=== PATIENT | male | born 1940 | race Caucasian/White ===

== ENCOUNTER 2021-02-10 10:49 | Outpatient (CLI) | payer MEDICARE | END 2021-02-10 10:50 | disposition critical access hospital (66) | LOC: EMS 10:49 | DX: Z76.89 Persons encountering health services in other specified circumstances (principal) | CPT/HCPCS: A0425; A0429 ==

== ENCOUNTER 2021-02-10 11:10 | Emergency (ER) | payer MEDICARE ==
[2021-02-10 11:55] VITALS: BP 118/63
--- NOTE | 2021-02-10 12:06 | ED Physician Documentation ---
History of Present Illness - Stated complaint Stated Complaint: injestion - Chief complaint Chief Complaint: General - History obtained from History obtained from: EMS - Additonal information Additional information: This is a profoundly demented 80-year-old gentleman who [facility] after having eaten part of the mushroom he found. He has no complaints but is profoundly demented. Review of Systems Unable to obtain: Dementia PD PAST MEDICAL HISTORY - Present Medications Home Medications: Ambulatory Orders Medication Instructions Recorded Confirmed Acetaminophen 640 mg PO BID 02/10/21 02/10/21 Bisacodyl Supp [Dulcolax Supp] 10 mg [place] DAILY PRN 02/10/21 02/10/21 Loperamide [Imodium] 2 mg PO QID PRN 02/10/21 02/10/21 Mag Hydrox/Aluminum Hyd/Simeth 30 ml PO Q4HR PRN 02/10/21 02/10/21 [Antacid Plus Anti-Gas Liquid] Magnesium Hydroxide [Milk of 30 ml PO DAILY PRN 02/10/21 02/10/21 Magnesia] Melatonin 15 mg PO HS 02/10/21 02/10/21 QUEtiapine [SEROquel] 12.5 mg PO BID 02/10/21 02/10/21 - Allergies Allergies/Adverse Reactions: Allergies Allergy/AdvReac Type Severity Reaction Status Date / Time No Known Drug Allergies Allergy Verified 02/10/21 11:16 PD ED PE NORMAL - Vitals Vital signs reviewed: Yes - General General: Other (Quite demented, alert and oriented to person only) - Abdomen Abdomen: Soft, Non tender Results - Vitals Vitals: Vital Signs - 24 hr 02/10/21 02/10/21 11:12 11:41 Temperature 36.5 C 36 C L Heart Rate 45 L 46 L Respiratory 14 14 Rate Blood Pressure 123/58 L 118/63 O2 Saturation 100 100 Oxygen O2 Source Room air PD MEDICAL DECISION MAKING - ED course ED course: The mushroom accompanies him and is in agaricus, nonstaining, likely a campestrus. Departure - Departure Disposition: 01 Home, Self Care Clinical Impression: Ingestion of nontoxic substance Qualifiers: Encounter type: initial encounter Injury intent: undetermined intent Qualified Code(s): T65.94XA - Toxic effect of unspecified substance, undetermined, initial encounter Condition: Good Record reviewed to determine appropriate education?: Yes Comments: This mushroom is an agaricus species and they are not toxic.
== END 2021-02-10 12:56 | disposition home or self-care (01) ==
LOC: ED 11:10
DX: Z03.6 Encounter for observation for suspected toxic effect from ingested substance ruled out (principal)
CPT/HCPCS: 99282; 99283

== ENCOUNTER 2021-02-10 12:57 | Outpatient (CLI) | payer MEDICARE | END 2021-02-10 12:58 | disposition home or self-care (01) | LOC: EMS 12:57 | PROVIDERS: ATTEND Emergency Medicine | DX: F03.90 Unspecified dementia, unspecified severity, without behavioral disturbance, psychotic disturbance, mood disturbance, and anxiety (principal); R41.0 Disorientation, unspecified | CPT/HCPCS: A0425; A0428 ==

== ENCOUNTER 2022-04-10 06:25 | Outpatient (CLI) | payer MEDICARE, MEDICAID | END 2022-04-10 06:26 | disposition critical access hospital (66) | LOC: EMS 06:25 | DX: S01.81XA Laceration without foreign body of other part of head, initial encounter (principal); W06.XXXA Fall from bed, initial encounter; Y92.092 Bedroom in other non-institutional residence as the place of occurrence of the external cause; F03.90 Unspecified dementia, unspecified severity, without behavioral disturbance, psychotic disturbance, mood disturbance, and anxiety | CPT/HCPCS: A0425; A0429 ==

== ENCOUNTER 2022-04-10 06:43 | Emergency (ER) | payer MEDICARE, MEDICAID ==
--- NOTE | 2022-04-10 07:43 | ED Physician Documentation ---
PD HPI HEAD INJURY - Stated complaint Stated Complaint: GLF - Chief complaint Chief Complaint: Trauma Hd/Nk - History obtained from History obtained from: EMS - History of Present Illness Location of injury: Left Associated symptoms: No: LOC, AMS Contributing factors: No: Anticoagulated - Additional information Additional information: Patient is an 81-year-old male who presents to the emergency department after a ground-level fall this morning. He has severe dementia. Unable to give any history. [facility] at [facility]. There was no medication was sent with the patient by the mcc, the mcc told EMS that the patient does not take any blood thinners. In the mcc states that he struck his head on a dresser. No loss of consciousness. No vomiting. No seizure activity. Review of Systems Unable to obtain: Dementia PD PAST MEDICAL HISTORY - Past Medical History Past Medical History: Yes Neuro: Dementia - Present Medications Home Medications: Ambulatory Orders Medication Instructions Recorded Confirmed Loperamide [Imodium] 2 mg PO QID PRN 02/10/21 04/10/22 Melatonin 15 mg PO HS 02/10/21 04/10/22 QUEtiapine [SEROquel] 12.5 mg PO BID 02/10/21 04/10/22 - Allergies Allergies/Adverse Reactions: Allergies Allergy/AdvReac Type Severity Reaction Status Date / Time No Known Drug Allergies Allergy Verified 04/10/22 06:49 - Living Situation Living Arrangement: reports: care home - Social History Does the pt smoke?: No Does the pt have substance abuse?: No - Family History Family history: reports: Non contributory PD ED PE NORMAL - Vitals Vital signs reviewed: Yes - General General: No acute distress, Well developed/nourished, Other (Alert, nonverbal) - HEENT HEENT: PERRL, Moist mucous membranes, Other (Small stellate laceration to the left jainism. No scalp hematoma or palpable skull fracture) - Neck Neck: Supple, no meningeal sign - Cardiac Cardiac: RRR - Respiratory Respiratory: No respiratory distress, Clear bilaterally - Abdomen Abdomen: Soft, Non tender, Non distended - Derm Derm: Warm and dry - Extremities Extremities: No deformity, No tenderness to palpate, Normal ROM s pain - Neuro Neuro: Other (Alert) Results - Vitals Vitals: Vital Signs - 24 hr 04/10/22 06:47 Temperature 36.9 C Heart Rate 56 L Respiratory 18 Rate Blood Pressure 161/81 H O2 Saturation 100 Oxygen O2 Source Room air - Rads (name of study) Head CT Radiology: Final report received, EMP read contemporaneously, See rad report Cervical spine CT Radiology: Final report received, EMP read contemporaneously, See rad report Procedures - Laceration (location) Small stellate laceration to left jainism Length in cm: 0.5 Wound type: Stellate, Superficial Neurovascular status: Sensory intact, Motor intact, Vascular intact Wound preparation: Irrigated copiously NS Skin layer closure: Dermabond, Steri strips Other: Patient tolerated well, No complications, Neurovascular intact, Dressing applied, Tetanus UTD PD MEDICAL DECISION MAKING - ED course Complexity details: reviewed results, re-evaluated patient, considered differential ED course: Patient is an 81-year-old male with severe dementia sent in by his mcc after a ground-level fall. No acute findings on head CT or cervical spine CT. Laceration repaired with Steri-Strips and Dermabond. Tetanus up-to-date. We will have him follow-up with his doctor for further care. Patient is DNR, comfort care This document was made in part using voice recognition software. While efforts are made to proofread this document, sound alike and grammatical errors may occur. Departure - Departure Disposition: 01 Home, Self Care Clinical Impression: Facial laceration Qualifiers: Encounter type: initial encounter Qualified Code(s): S01.81XA - Laceration without foreign body of other part of head, initial encounter Closed head injury Qualifiers: Encounter type: initial encounter Qualified Code(s): S09.90XA - Unspecified injury of head, initial encounter Condition: Good Instructions: ED Head Injury Closed, ED Laceration Facial Skin Glue Follow-Up: Your,doctor in 1 week [Other] Comments: There are no acute findings on his head CT or cervical spine CT. The laceration was repaired with Steri-Strips and Dermabond. Please keep the wound clean. Do not apply ointment as this may dissolve the glue. You can cover the area with a bandage if he is picking at the wound site. Follow-up with his doctor if you notice redness, swelling or drainage from the wound.
--- NOTE | 2022-04-10 08:02 | CT Report ---
PROCEDURE: HEAD WO INDICATIONS: fall, head/neck injury, dementia TECHNIQUE: Noncontrast 4.5 mm thick angled axial sections acquired from the foramen magnum to the vertex. For r adiation dose reduction, the following was used: automated exposure control, adjustment of mA and/or kV according to patient size. COMPARISON: Correlation is made with the accompanying cervical spine CT, 04/10/2023. FINDINGS: Image quality: There is streak artifact seen through the skull base. CSF spaces: Basal cisterns a re patent. No extra-axial fluid collections. Ventricles are normal in size and shape. Brain: No midline shift. No intracranial masses or hemorrhage. Dela Cruz-white matter interface is norm al. Age-appropriate brain parenchymal volume loss and chronic small vessel ischemic change can be se en. 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 Skull and face: Calvarium and visualized facial bones are intact, without suspicious lesions. Sinuses: Visualized sinuses and mastoids are clear. IMPRESSION: No intracranial hemorrhage is seen. No significant intracranial abnormality is seen. 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 Reviewed by: Augusto Aden MD on 04/10/2022 7:01 AM [place] Approved by: Augusto Aden MD on 04/10/2022 7:01 AM [facility] Station ID: [id number]
--- NOTE | 2022-04-10 08:04 | CT Report ---
PROCEDURE: CERVICAL SPINE WO INDICATIONS: fall, head/neck injury, dementia TECHNIQUE: Noncontrast 3 mm thick sections acquired from the skull base to the T4 level. Sagittal and coronal r eformats were then constructed. For radiation dose reduction, the following was used: automated exp osure control, adjustment of mA and/or kV according to patient size. COMPARISON: Correlation is made with the accompanying head CT, 04/10/2022. FINDINGS: Image quality: Motion artifact is noted. Bones: No fractures or dislocations. Visualized superior ribs are intact. There is moderate disc space narrowing seen at C2-C3, with at least moderate disc space narrowing see n throughout the remainder of the cervical spine. Likely partially bridging of the vertebral bodies c an be seen involving the lower cervical spine. Focal degenerative change can also be seen involving t he C1-C2 interface anteriorly. Soft tissues: Prevertebral soft tissues are normal in thickness. No paravertebral hematomas. No ap ical pneumothoraces. Atherosclerotic calcification is seen. IMPRESSION: Negative for acute fracture. Advanced degenerative changes are seen, particularly inferiorly. Reviewed by: Augusto Aden MD on 04/10/2022 7:03 AM [facility] Approved by: Augusto Aden MD on 04/10/2022 7:03 AM [facility] Station ID: [id number]
[2022-04-10 09:06] VITALS: BP 179/73
== END 2022-04-10 10:04 | disposition home or self-care (01) ==
LOC: EDUNIT# → ED 06:43
DX: S01.81XA Laceration without foreign body of other part of head, initial encounter (principal); W18.30XA Fall on same level, unspecified, initial encounter; W22.03XA Walked into furniture, initial encounter; Y92.199 Unspecified place in other specified residential institution as the place of occurrence of the external cause; F03.90 Unspecified dementia, unspecified severity, without behavioral disturbance, psychotic disturbance, mood disturbance, and anxiety
CPT/HCPCS: 12011; 99283; 99284

== ENCOUNTER 2022-04-10 10:05 | Outpatient (CLI) | payer MEDICARE, MEDICAID | END 2022-04-10 10:06 | disposition home or self-care (01) | LOC: EMS 10:05 | PROVIDERS: ATTEND Emergency Medicine | DX: S01.81XA Laceration without foreign body of other part of head, initial encounter (principal); S09.90XA Unspecified injury of head, initial encounter; X58.XXXA Exposure to other specified factors, initial encounter; F03.90 Unspecified dementia, unspecified severity, without behavioral disturbance, psychotic disturbance, mood disturbance, and anxiety | CPT/HCPCS: A0425; A0428 ==

== ENCOUNTER 2022-05-30 15:42 | Outpatient (CLI) | payer MEDICARE, MEDICAID | END 2022-05-30 23:59 | disposition critical access hospital (66) | LOC: EMS 15:42 | DX: R19.7 Diarrhea, unspecified (principal); G30.9 Alzheimer's disease, unspecified; F02.80 Dementia in other diseases classified elsewhere, unspecified severity, without behavioral disturbance, psychotic disturbance, mood disturbance, and anxiety | CPT/HCPCS: A0425; A0429 ==

== ENCOUNTER 2022-05-30 16:06 | Emergency (ER) | payer MEDICARE, MEDICAID ==
[2022-05-30 16:17] VITALS: BP 121/72
[2022-05-30 17:33] LABS: BASOPHILS # (AUTO) 0.1 10^3/uL (0.0-0.1); BASOPHILS % (AUTO) 0.6 %; EOSINOPHILS # (AUTO) 0.1 10^3/uL (0.0-0.7); EOSINOPHILS % (AUTO) 0.9 %; HCT - HEMATOCRIT 41.1 % (42.0-52.0); HGB - HEMOGLOBIN 12.9 g/dL (14.0-18.0); LYMPHOCYTES # (AUTO) 2.8 10^3/uL (1.5-3.5); LYMPHOCYTES % (AUTO) 22.5 %; MEAN CORPUSCULAR HEMOGLOBIN 29.1 pg (27.0-31.0); MEAN CORPUSCULAR HGB CONC 31.4 g/dL (32.0-36.0); MEAN CORPUSCULAR VOLUME 92.8 fL (80.0-94.0); MEAN PLATELET VOLUME 9.6 fL (7.4-11.4); MONOCYTES # (AUTO) 0.9 10^3/uL (0.0-1.0); MONOCYTES % (AUTO) 7.7 %; NEUTROPHILS # (AUTO) 8.3 10^3/uL (1.5-6.6); NEUTROPHILS % (AUTO) 67.7 %; PLT - PLATELET COUNT 339 10^3/uL (130-450); RED BLOOD COUNT 4.43 10^6/uL (4.70-6.10); RED CELL DISTRIBUTION WIDTH 12.9 % (12.0-15.0); WHITE BLOOD COUNT 12.3 x10^3/uL (4.8-10.8)
[2022-05-30 17:44] LABS: ALBUMIN/GLOBULIN RATIO 0.8 (1.0-2.2); BILIRUBIN,TOTAL 0.4 mg/dL (0.2-1.0); CALCIUM 9.1 mg/dL (8.5-10.3); CREATININE 1.1 mg/dL (0.6-1.2); TOTAL PROTEIN 6.6 g/dL (6.7-8.2)
[2022-05-30] MEDS ORDERED: SODIUM CHLORIDE 0.9% 1,000 ML IV STA (17:54)
--- NOTE | 2022-05-30 17:54 | ED Physician Documentation ---
PD HPI NVD - Stated complaint Stated Complaint: AMS - Chief complaint Chief Complaint: Abd Pain - Additonal information Additional information: 82-year-old gentleman profound dementia comes from memory care unit with diarrhea x4 days. He is unable to give any history due to his severe dementia. Review of Systems Unable to obtain: Dementia PD PAST MEDICAL HISTORY - Past Medical History Neuro: Dementia - Present Medications Home Medications: Ambulatory Orders Medication Instructions Recorded Confirmed Loperamide [Imodium] 2 mg PO QID PRN 02/10/21 04/10/22 Melatonin 15 mg PO HS 02/10/21 04/10/22 QUEtiapine [SEROquel] 12.5 mg PO BID 02/10/21 04/10/22 AZITHROMYCIN (Oral Susp) 20 ml PO DAILY #40 ml 05/30/22 [Zithromax] - Allergies Allergies/Adverse Reactions: Allergies Allergy/AdvReac Type Severity Reaction Status Date / Time No Known Drug Allergies Allergy Verified 04/10/22 06:49 - Social History Does the pt smoke?: No Does the pt have substance abuse?: No PD ED PE NORMAL - Vitals Vital signs reviewed: Yes - General General: Other (Nonverbal with profound dementia) - Abdomen Abdomen: Normal bowel sounds, Soft, Non tender - Rectal Rectal: Other (Not incontinent of stool on my evaluation.) - Neuro Eye Opening: Spontaneous Motor: Localizes to Pain Verbal: None GCS Score: 10 Results - Vitals Vitals: Vital Signs - 24 hr 05/30/22 16:10 Temperature 36.5 C Heart Rate 70 Respiratory 18 Rate Blood Pressure 121/72 O2 Saturation 98 Oxygen O2 Source Room air - Labs Labs: Laboratory Tests 05/30/22 05/30/22 17:23 17:23 WBC 12.3 H RBC 4.43 L Hgb 12.9 L Hct 41.1 L MCV 92.8 MCH 29.1 MCHC 31.4 L RDW 12.9 Plt Count 339 MPV 9.6 Neut # (Auto) 8.3 H Lymph # (Auto) 2.8 [place] # (Auto) 0.9 Eos # (Auto) 0.1 Baso # (Auto) 0.1 Absolute Nucleated RBC 0.00 Nucleated RBC % 0.0 Sodium 146 H Potassium 4.0 Chloride 110 Carbon Dioxide 27 Anion Gap 9.0 BUN 29 H Creatinine 1.1 Estimated GFR (MDRD) 64 L Glucose 179 H Calcium 9.1 Total Bilirubin 0.4 AST 14 ALT 18 Alkaline Phosphatase 62 Total Protein 6.6 L Albumin 3.0 L Globulin 3.6 Albumin/Globulin Ratio 0.8 L Lipase 43 PD Medical Decision Making - ED course ED course: 82-year-old gentleman presents from assisted living with diarrhea. He has a benign exam. He does have some prerenal azotemia of unclear chronicity on evaluation of his comprehensive metabolic panel and also mild hypernatremia. CBC is notable for mild leukocytosis. Given his dementia he is not able to give a stool sample so we will treat him presumptively for potential bacterial causes. I spoke with his by phone and discussed lab results and plan for treatment and she was agreeable. She did note that he probably will do better with liquid medications than solid. Departure - Departure Disposition: 01 Home, Self Care Clinical Impression: Diarrhea Qualifiers: Diarrhea type: presumed infectious Qualified Code(s): R19.7 - Diarrhea, uns pecified Condition: Good Record reviewed to determine appropriate education?: Yes Instructions: ED Diarrhea Bacterial Prescriptions: AZITHROMYCIN (Oral Susp) [Zithromax] 20 ml PO DAILY #40 ml Comments: White count of 12, mild dehydration on labs. He received first dose of azithromycin here and he needs 2 more days. Return if worse.
[2022-05-30] MEDS ORDERED: AZITHROMYCIN 250 MG TABLET PO STA (17:55)
[2022-05-30] MEDS ORDERED: AZITHROMYCIN 100 MG/5 ML SYRINGE PO STA (18:05)
== END 2022-05-30 20:12 | disposition home or self-care (01) ==
LOC: EDUNIT# → ED 16:06
DX: R19.7 Diarrhea, unspecified (principal); F03.C0 Unspecified dementia, severe, without behavioral disturbance, psychotic disturbance, mood disturbance, and anxiety
CPT/HCPCS: 36415; 80053; 83690; 85025; 96360; 96361; 99284; A9270

== ENCOUNTER 2022-05-30 20:11 | Outpatient (CLI) | payer MEDICARE, MEDICAID | END 2022-05-30 20:12 | disposition home or self-care (01) | LOC: EMS 20:11 | PROVIDERS: ATTEND Emergency Medicine | DX: F03.90 Unspecified dementia, unspecified severity, without behavioral disturbance, psychotic disturbance, mood disturbance, and anxiety (principal); R41.0 Disorientation, unspecified | CPT/HCPCS: A0425; A0429 ==

== ENCOUNTER 2022-06-09 20:56 | Outpatient (CLI) | payer MEDICARE, MEDICAID | END 2022-06-09 20:57 | disposition critical access hospital (66) | LOC: EMS 20:56 | DX: S01.81XA Laceration without foreign body of other part of head, initial encounter (principal); W07.XXXA Fall from chair, initial encounter; Y92.098 Other place in other non-institutional residence as the place of occurrence of the external cause | CPT/HCPCS: A0425; A0429 ==

== ENCOUNTER 2022-06-09 21:12 | Emergency (ER) | payer MEDICARE, MEDICAID ==
--- NOTE | 2022-06-09 21:24 | ED Physician Documentation ---
PD HPI HEAD INJURY - Stated complaint Stated Complaint: GLF - History obtained from History obtained from: EMS - Additional information Additional information: Reportedly fell out of his chair at a dementia unit. Has a scrape on the right latter-day. He seems to be back at his baseline which is very demented and nonverbal. As such all of the history is independently from the paramedics. PD PAST MEDICAL HISTORY - Past Medical History Neuro: Dementia - Present Medications Home Medications: Ambulatory Orders Medication Instructions Recorded Confirmed Loperamide [Imodium] 2 mg PO QID PRN 02/10/21 04/10/22 Melatonin 15 mg PO HS 02/10/21 04/10/22 QUEtiapine [SEROquel] 12.5 mg PO BID 02/10/21 04/10/22 AZITHROMYCIN (Oral Susp) 20 ml PO DAILY #40 ml 05/30/22 [Zithromax] - Allergies Allergies/Adverse Reactions: Allergies Allergy/AdvReac Type Severity Reaction Status Date / Time No Known Drug Allergies Allergy Verified 04/10/22 06:49 - Social History Does the pt smoke?: No Does the pt have substance abuse?: No PD ED PE NORMAL - Vitals Vital signs reviewed: Yes - General General: Other (There is a quarter sized abrasion on the right latter-day. He is nonverbal but does not appear to be in any distress.) - HEENT HEENT: PERRL, EOMI - Neck Neck: No bony TTP - Neuro Eye Opening: Spontaneous Motor: Localizes to Pain Verbal: None GCS Score: 10 Results - Vitals Vitals: Oxygen O2 Source Room air Procedures - Laceration (location) Right latter-day Length in cm: 2 Wound type: Curved, Superficial Wound preparation: Irrigated copiously NS Skin layer closure: Dermabond PD Medical Decision Making - ED course ED course: 82-year-old gentleman with profound dementia presents after head injury. I cleansed his wound and closed it with Dermabond. I called his by phone who answered and we discussed goals of care. She declined advanced imaging as any positive results would not be acted upon. Departure - Departure Disposition: 01 Home, Self Care Clinical Impression: Closed head injury Qualifiers: Encounter type: initial encounter Qualified Code(s): S09.90XA - Unspecified injury of head, initial encounter Scalp abrasion Qualifiers: Encounter type: initial encounter Qualified Code(s): S00.01XA - Abrasion of scalp, initial encounter Condition: Good Record reviewed to determine appropriate education?: Yes Instructions: ED Head Injury Closed Comments: I spoke with the by phone who is his decision-maker. She would prefer no hospital transport as she is not interested in advanced imaging to rule out intracranial hemorrhage or other serious injuries.
[2022-06-09 21:29] VITALS: BP 157/73
== END 2022-06-09 21:43 | disposition home or self-care (01) ==
LOC: EDUNIT# → ED 21:12
DX: S01.81XA Laceration without foreign body of other part of head, initial encounter (principal); S09.90XA Unspecified injury of head, initial encounter; W07.XXXA Fall from chair, initial encounter; Y92.129 Unspecified place in nursing home as the place of occurrence of the external cause; F03.90 Unspecified dementia, unspecified severity, without behavioral disturbance, psychotic disturbance, mood disturbance, and anxiety; R41.0 Disorientation, unspecified
CPT/HCPCS: 12011; 99281

== ENCOUNTER 2022-06-09 21:32 | Outpatient (CLI) | payer MEDICARE, MEDICAID | END 2022-06-09 21:33 | disposition home or self-care (01) | LOC: EMS 21:32 | PROVIDERS: ATTEND Emergency Medicine | DX: R41.0 Disorientation, unspecified (principal); S01.81XA Laceration without foreign body of other part of head, initial encounter; W19.XXXA Unspecified fall, initial encounter | CPT/HCPCS: A0425; A0428 ==

== ENCOUNTER 2023-07-19 19:31 | Outpatient (CLI) | payer MEDICARE, MEDICAID | END 2023-07-19 19:32 | disposition critical access hospital (66) | LOC: EMS 19:31 | DX: R11.10 Vomiting, unspecified (principal); R19.7 Diarrhea, unspecified; R09.89 Other specified symptoms and signs involving the circulatory and respiratory systems; R14.0 Abdominal distension (gaseous); R10.817 Generalized abdominal tenderness | CPT/HCPCS: A0425; A0429 ==

== ENCOUNTER 2023-07-19 19:49 | Emergency (ER) | payer MEDICARE, MEDICAID ==
--- NOTE | 2023-07-19 20:18 | ED Physician Documentation ---
PD HPI NVD - Stated complaint Stated Complaint: VOMITING/DIARRHEA - Chief complaint Chief Complaint: Abd Pain - Additonal information Additional information: BIBA. Patient is unable to contribute to HPI/ROS due to non-verbal at baseline. Presents due to vomiting and diarrhea. POLST form (brought in with patient) indicates DNR, comfort measures only Review of Systems Unable to obtain: Dementia, Other (nonverbal, does not follow commands, does not make eye contact) PD PAST MEDICAL HISTORY - Past Medical History Neuro: Dementia - Present Medications Home Medications: Ambulatory Orders Medication Instructions Recorded Confirmed Acetaminophen [Tylenol] 160 mg 07/19/23 Ciprofloxacin HCl [Cipro] 500 mg PO BID #10 tablet 07/20/23 - Allergies Allergies/Adverse Reactions: Allergies Allergy/AdvReac Type Severity Reaction Status Date / Time No Known Drug Allergies Allergy Verified 07/19/23 19:53 - Social History Does the pt smoke?: No Smoking Status: Never smoker Does the pt have substance abuse?: No PD ED PE NORMAL - Vitals Vital signs reviewed: Yes - General General: No acute distress, Well developed/nourished, Other (lying on stretcher with eyes closed, NAD. nonverbal, does not follow commands) - HEENT HEENT: Other (tacky mucous membranes) - Cardiac Cardiac: No murmur - Respiratory Respiratory: No respiratory distress, Clear bilaterally - Abdomen Abdomen: Normal bowel sounds, Soft, Non tender (does not verbalize tender/nontender to palpation, but no wincing nor abdominal musculature tightening with light/deep palpation), Non distended - Extremities Extremities: Other (blue discoloration of bilateral feet/toes and right knee (c/w cyanosis although normal color of the lower leg b/w knee and foot on right)) - Neuro Eye Opening: To Pain Motor: Localizes to Pain Verbal: None GCS Score: 8 PD ED PE EXPANDED - Cardiac Cardiac: Tachy (mild tachycardia) Results - Vitals Vitals: Vital Signs - 24 hr 07/19/23 07/19/23 07/19/23 19:57 20:48 22:48 Temperature 36.1 C L 37.1 C Heart Rate 105 H 90 102 H Respiratory 13 13 14 Rate Blood Pressure 133/100 H 198/100 H 144/98 H O2 Saturation 99 100 98 07/20/23 00:00 Temperature Heart Rate 92 Respiratory 13 Rate Blood Pressure 142/90 H O2 Saturation 96 Oxygen O2 Source Room air - Labs Labs: Laboratory Tests 07/19/23 07/19/23 07/19/23 20:28 20:28 22:00 WBC 25.3 H RBC 5.39 Hgb 16.3 Hct 51.9 MCV 96.3 H MCH 30.2 MCHC 31.4 L RDW 13.2 Plt Count 305 MPV 10.5 Neut # (Auto) Not Reportable Lymph # (Auto) Not Reportable [place] # (Auto) Not Reportable Eos # (Auto) Not Reportable Baso # (Auto) Not Reportable Absolute Nucleated RBC Not Reportable Total Counted 100 Band Neuts % (Manual) 20 H Abnorm Lymph % (Manual) 0 Metamyelocytes % 2 H Nucleated RBC % Not Reportable Neutrophils # (Manual) 22.5 H Lymphocytes # (Manual) 0.3 L Monocytes # (Manual) 2.0 H Eosinophils # (Manual) 0.0 Basophils # (Manual) 0.0 Differential Comment MANUAL DIFFERENTIAL Platelet Estimate NORMAL (130-450,000) Platelet Morphology NORMAL APPEARANCE RBC Morph Micro Appear NORMAL APPEARANCE Sodium 140 Potassium 4.6 H Chloride 106 Carbon Dioxide 20 L Anion Gap 14.0 H BUN 36 H Creatinine 1.5 H Estimated GFR (MDRD) 44 L Glucose 214 H Calcium 10.3 Total Bilirubin 0.8 AST 24 ALT 17 Alkaline Phosphatase 78 Total Protein 7.1 Albumin 4.0 Globulin 3.1 Albumin/Globulin Ratio 1.3 Lipase 19 Stl C. diff Tox B Gene NEGATIVE - Rads (name of study) CT A/P with IV contrast Relevant Findings:: Prelim report reviewed, See rad report PD Medical Decision Making - ED course Complexity details: reviewed results, re-evaluated patient, considered differential ED course: Patient is in NAD during ED stay/observation. Afebrile, as well. Blood work is notable for significant leukocytosis, WBC 25.3. No particularly concerning findings on ER abdominal panel; elevated BUN (36) and creatinine (1.5) are consistent with dehydration. Over the course of his ED stay, he is given 2 L normal saline IV. Upon presentation to the ED, his adult diaper is noted to be very full of liquid stool. This is tested for C. difficile and is negative for C. difficile. PCR GI panel is also in progress. Although he is not in any apparent distress during ED stay and abdominal exam is benign on initial and repeat exams during ED stay, given the significant leukocytosis, a CT scan of the abdomen and pelvis is ordered.After this was ordered but before was undertaken, the patient's called to the ED and I discussed with her the test results thus far and the plan to undertake CT of the abdomen pelvis; she is in agreement with this. The patient's POLST form indicates DNR with comfort measures only. The reason for the CT scan is to assess whether there are any findings that would benefit from treatment in order to diminish or resolve signs (such as diarrhea) and symptoms (patient's says that staff indicated to her that the patient was seeming to be in a lot of painful discomfort earlier tonight). The CT scan is notable for a large amount of stool throughout the colon consistent with constipation possible fecal impaction. I attempted to perform a manual disimpaction, but I could only feel some firm stool at my fingertip. Patient is unable to follow commands (such as "bear down"), and thus I was unable to disimpact the stool. As soon as I withdrew my finger, there was once again a moderate amount of loose, liquid stool output. He is being discharged back to home place and a 1-time dose of milk of magnesia is being given 2-go, and I have included in the discharge instructions (and the ED nurse will also relay to staff at home [facility]) that the patient is to be given the dose of the milk of magnesia as soon as he arrives back at home [facility]. Also noted on the CT of the abdomen and pelvis, on the cuts into the thorax, are "multiple pulmonary nodulesconcerning for pulmonary metastatic disease." This is per the radiologist interpretation. No matter the patient's POLST wishes, any further workup in regard to this finding can be undertaken in the outpatient setting; of course, if the patient's wishes are truly to be comfort measures only, it would be of questionable utility to pursue a workup in regards to looking into whether or not this finding represents pulmonary metastases. The radiologist's interpretation also mentions "questionable sigmoid colon and distal descending colon wall thickening which may represent colitis, neoplastic process cannot be excluded." Given the significant leukocytosis in combination with possible colitis, I am providing prescription for BID Cipro x 5 days. Departure - Departure Disposition: 01 Home, Self Care Clinical Impression: Colitis Condition: Good Instructions: ED Constipation Prescriptions: Ciprofloxacin HCl [Cipro] 500 mg PO BID #10 tablet Comments: The CT scan of the abdomen pelvis are suggestive of constipation. There was a significant amount of very loose stool output during the ER stay; this is likely due to a large clot of hard, dry stool which is only allowing liquid stool to get around it and out. The CT scan also had findings suggestive of possible colitis (inflammation of the colon). There are a few different causes of colitis; a specific cause is rarely found during an emergency department workup. Because a bacterial infection is 1 possible cause, and considering that the white blood cell count was very elevated on karthik's blood tests, I am providing a prescription for an antibiotic that would cover many of the bacterial causes of colitis. I would recommend a one-time dose of milk of magnesia that can be given once he arrives back at [facility]. If he does not have a significant amount of firm/solid stool output, the primary care provider can be contacted for consideration of further orders for symptoms. The CT scan also included some imaging of the lower chest; the radiologist notes multiple nodules in both lungs on these images. Is unclear what is causing this appearance, but metastatic cancer would be one possibility. Further testing, such as a CT scan, would provide further information and might further suggest one diagnosis over another, but whether to pursue further study needs to be considered in the context of the patient's wishes for treatment should metastatic cancer be revealed to be the cause of this finding.
[2023-07-19] MEDS: ONDANSETRON 4 MG/2 ML VIAL IVP STA (20:24)
[2023-07-19 20:33] LABS: BASOPHILS % (AUTO) 0.6 %; HCT - HEMATOCRIT 51.9 % (42.0-52.0); HGB - HEMOGLOBIN 16.3 g/dL (14.0-18.0); MEAN CORPUSCULAR HEMOGLOBIN 30.2 pg (27.0-31.0); MEAN CORPUSCULAR HGB CONC 31.4 g/dL (32.0-36.0); MEAN CORPUSCULAR VOLUME 96.3 fL (80.0-94.0); MEAN PLATELET VOLUME 10.5 fL (7.4-11.4); MONOCYTES % (AUTO) 7.9 %; NEUTROPHILS % (AUTO) 87.6 %; PLT - PLATELET COUNT 305 10^3/uL (130-450); RED BLOOD COUNT 5.39 10^6/uL (4.70-6.10); RED CELL DISTRIBUTION WIDTH 13.2 % (12.0-15.0); WHITE BLOOD COUNT 25.3 x10^3/uL (4.8-10.8)
[2023-07-19 20:46] LABS: ABNORMAL LYMPHS % (MANUAL) 0 %
[2023-07-19 20:50] LABS: ALBUMIN/GLOBULIN RATIO 1.3 (1.0-2.2); BILIRUBIN,TOTAL 0.8 mg/dL (0.2-1.0); CALCIUM 10.3 mg/dL (8.5-10.3); CREATININE 1.5 mg/dL (0.6-1.3); POTASSIUM 4.6 mmol/L (3.5-4.5); TOTAL PROTEIN 7.1 g/dL (6.4-8.9)
[2023-07-19 21:08] LABS: BAND NEUTROPHILS % (MANUAL) 20 %; LYMPHOCYTES # (MANUAL) 0.3 10^3/uL (1.5-3.5); LYMPHOCYTES % (MANUAL) 1 %; METAMYELOCYTES % (MANUAL) 2 %; NEUTROPHILS # (MANUAL) 22.5 10^3/uL (1.5-6.6)
[2023-07-19 21:12] LABS: DIFFERENTIAL COMMENT MANUAL DIFFERENTIAL; PLATELET ESTIMATE, MANUAL NORMAL (130-450,000) (NORMAL); PLATELET MORPHOLOGY NORMAL APPEARANCE (NORMAL); RBC MORPHOLOGY (MULTIPLE) NORMAL APPEARANCE (NORMAL)
[2023-07-19] MEDS ORDERED: IOVERSOL 320 100 ML VIAL IVP ONE (21:27)
[2023-07-19] MEDS: IOVERSOL 320 100 ML VIAL IVP ONE (22:15)
[2023-07-19] MEDS: SODIUM CHLORIDE 0.9% 1,000 ML IV STA (22:26)
--- NOTE | 2023-07-19 22:36 | CT Report ---
PROCEDURE: Abdomen/Pelvis W INDICATIONS: leukocytosis, vomiting/diarrhea CONTRAST: 70 OPTI 320 TECHNIQUE: After the administration of intravenous contrast, a CT scan of the abdomen and pelvis was performed. Images were recorded and evaluated at appropriate window settings. Reformats: coronal and sagittal. F or radiation dose reduction, the following was used: automated exposure control, adjustment of mA and /or kV according to patient size. COMPARISON: None. FINDINGS: Image quality: Diagnostic. Lower chest: 1.2 cm lobulated solid nodule is seen in posterior lateral aspect of right middle lobe s eries 9 image 4. 1.2 x 1 cm solid nodule with central radiolucent area is seen in posterior medial as pect of right lower lobe. Series 9 image 5. 3 mm solid nodule is seen in right middle lobe series 9 i mage 5. 4 mm right middle lobe nodule and 5 mm right lower lobe nodule are also seen series 9 image 1 . 5 mm solid nodule is seen in anterior right lower lobe series 9 image 12. Bibasilar atelectasis is seen. Possible left upper lobe nodule is seen series 9 image 1 and is incompletely evaluated measures approximately 3 mm in size. Heart size is enlarged, no pericardial effusion. Coronary artery calcifi cations are seen. Liver: No solid mass. Gallbladder and biliary tree: Gallbladder is distended. No calcified gallstones. No gallbladder wall thickening. Spleen: No splenomegaly. Pancreas: No pancreatic ductal dilation. Adrenals: No adrenal nodule. Kidneys and ureters: No hydronephrosis. No renal cystic lesion which requires follow up. No solid mas s. Stomach, bowel and peritoneum: There is a small hiatal hernia. No evidence of small bowel obstruction or abnormal small bowel wall thickening. Large amount of fecal matter is noted throughout the colon extending to sigmoid colon and rectum with redundant sigmoid colon and suggestion of descending colon and sigmoid colon wall thickening and edema. No abscess collection. No peritoneal free air. Trace am ount of ascites fluid adjacent to the liver is seen. Lymph nodes: No central or retroperitoneal adenopathy. Vessels: No infrarenal aortic aneurysm. Moderate atherosclerotic calcifications in abdominal aorta is seen. PELVIS Reproductive organs: Unremarkable. Bladder: No abnormal wall thickening, accounting for underdistention. Pelvic lymph nodes: No pelvic adenopathy by size criteria. Bones: No aggressive osseous abnormality. Other: No significant ventral or inguinal hernia. IMPRESSION: 1. Large amount of fecal matter scattered throughout the colon particularly distending redundant sigm oid colon and rectum. Finding is concerning for constipation and severe fecal impaction. Questionable sigmoid colon and distal descending colon wall thickening which may represent colitis, neoplastic pr ocess cannot be excluded. Suggests GI correlation. No abscess collection. No free air. Trace amount o f free fluid adjacent to the liver. 2. 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 CT jeb st follow-up is recommended. 3. Distended gallbladder. No calcified gallstone or gallbladder wall thickening to suggest acute dise ase. Reviewed by: Long Box MD on 07/19/2023 10:35 PM PST Approved by: Long Box MD on 07/19/2023 10:35 PM PST Station ID: [id number]
[2023-07-19] MEDS: GLYCERIN ADULT SUPP PR STA (23:51)
[2023-07-20] MEDS: MAGNESIUM HYDROXIDE 2,400 MG/30 ML UDC PO STA (01:04)
[2023-07-20 01:17] VITALS: BP 142/90; O2SAT 96
== END 2023-07-20 01:44 | disposition home or self-care (01) ==
LOC: EDUNIT# → ED 19:49
DX: K52.9 Noninfective gastroenteritis and colitis, unspecified (principal); F03.90 Unspecified dementia, unspecified severity, without behavioral disturbance, psychotic disturbance, mood disturbance, and anxiety; Z66 Do not resuscitate; R00.0 Tachycardia, unspecified
CPT/HCPCS: 36415; 74177; 80053; 83690; 85025; 87493; 87507; 96374; 99284; A9270; Q9967

== ENCOUNTER 2023-07-20 01:47 | Outpatient (CLI) | payer MEDICARE, MEDICAID | END 2023-07-20 23:59 | disposition home or self-care (01) | LOC: EMS 01:47 | PROVIDERS: ATTEND Emergency Medicine | DX: R41.0 Disorientation, unspecified (principal); K56.41 Fecal impaction; F03.90 Unspecified dementia, unspecified severity, without behavioral disturbance, psychotic disturbance, mood disturbance, and anxiety | CPT/HCPCS: A0425; A0428 ==